=== PATIENT | male | born 1970 | race Hispanic/Latino ===

== ENCOUNTER 2022-11-17 09:29 | Outpatient (CLI) | payer OTHER | END 2022-11-17 09:30 | disposition home or self-care (01) | LOC: SCSRAD 09:29 | PROVIDERS: ATTEND Nurse Practitioner Family | DX: M54.50 Low back pain, unspecified (principal); M47.816 Spondylosis without myelopathy or radiculopathy, lumbar region | CPT/HCPCS: 72100 ==